=== PATIENT | female | born 1980 | race Caucasian/White ===

== ENCOUNTER 2016-03-18 17:16 | Emergency (ER) | payer OTHER ==
--- NOTE | 2016-03-18 18:17 | ERNOTE ---
ER Female HPI Date of Service: 03/18/16 Stated Complaint: 8 WEEKS . BLEEDING/CLOTS Presenting Symptoms: other Time Seen by Provider: 03/18/16 18:03 Source: patient, RN notes reviewed Exam Limitations: no limitations Immunizations: IMMUNIZATION HX Immunizations Up to Date No History of Influenza Vaccine No Hx Pneumococcal Vaccination No Allergies/Adverse Reactions: Allergies No Known Allergies Allergy (Verified 05/12/15 17:49) Home Medications: HOME MEDICATIONS Labetalol HCl [Trandate] 100 mg PO BID 03/18/16 [Last Taken Unknown] NK [No Home Medication] 03/18/16 [Last Taken Unknown] Pain Score #1 Pain Score: 0 - History of Present Illness Narrative: 35 y/o female ambulatory to ED for vaginal bleeding. She is 8 weeks . She a brief episode of heavy bleeding and passed several clots earlier this afternoon. She reports the bleeding has since stopped. She contacted her OB's office and was directed to come here for evaluation. Her ultrasound and appointment were moved up to this Monday. She is a . She reports being Rh positive. She denies any abdominal or pelvic pain. Activities at Onset: Present: none Prior Abdominal Problems: Present: similar symptoms - during 1st Associated Symptoms: Absent: fever/chills, nausea, vomiting, abdominal pain, dysuria, urinary frequency, low back pain Review of Systems - Review of Systems Constitutional: Present: See HPI EYE: Present: no symptoms reported ENT: Present: no symptoms reported Respiratory: Present: no symptoms reported Cardiology: Present: no symptoms reported Gastrointestinal/Abdominal: Present: See HPI Genitourinary: Present: See HPI Musculoskeletal: Present: See HPI Skin: Present: no symptoms reported Neurological: Absent: headache, dizziness/light-headedness, weakness Endocrine: Present: no symptoms reported Hematologic/Lymphatic: Present: no symptoms reported Psych: Present: no symptoms reported - Patient's Past Medical History Patient History - Medical: No pertinent hx Patient History - Cardiac/Respiratory: Hypertension Patient History - Cancer: No Hx of Cancer Patient History - Surgical Procedures: No surgical history Patient History - Other: None LMP (females 10-50): 01/29/16 LMP (Calendar): 01/29/16 - Social History Living Situations: alone Abuse History: No History of abuse Psych History: No pertinent hx Smoking Status: Smoker, status unknown Have you smoked in the past 12 months: No Do you dip or chew tobacco: No Patient requests Smoking Cessation Consult: No Initiate information on Smoking Cessation: No Alcohol Use: none Drug Use: none - Immunizations Immunizations Up to Date: No Hx Pneumococcal Vaccination: No History of Influenza Vaccine: No Physical Exam - Physical Exam General Appearance: Present: wd/wn, alert, no apparent distress Respiratory: Present: no respiratory distress, normal breath sounds, no accessory muscle use, lungs clear Cardiovascular/Chest: Present: regular rate, rhythm, no murmur, normal peripheral pulses Gastrointestinal/Abdominal: Present: normal bowel sounds, nontender, nondistended, soft Neurological Exam: Present: alert, oriented, normal mood/affect, no motor/ sensory deficits Skin Exam: Present: normal color, warm/dry ED Progress - Vital Signs Patient's Vital Signs:: I have reviewed the patient's vital signs. Vital Signs: Vital Signs 03/18/16 03/18/16 17:16 17:49 Temperature 36.7 C 36.7 C Pulse Rate 75 75 Respiratory 16 16 Rate Blood Pressure 167/86 167/86 O2 Sat by Pulse 98 98 Oximetry - Progress/Reassessment Chief Complaint: OB Screening Progress:: Unchanged Plan - Plan Plan: No testing done at this time as patient's bleeding has subsided and she is not having pain. Discussed indications for needing to return to the ED, otherwise is to f/u on Monday as planned. Patient in agreement with plan. Departure Clinical Impression: First trimester bleeding - Departure Disposition: Home Follow Up Needed Condition: Stable Instructions: Vaginal Bleeding During , First Trimester Additional Instructions: Nothing in the vagina until ok'd by your OB Return for worsening symptoms - saturating a pad in an hour, passing large clots , pain See your doctor Monday as scheduled Referrals: Hammad Jernigan MD [Primary Care Provider] -
[2016-03-18 18:29] VITALS: BP 153/73
== END 2016-03-18 18:26 | disposition home or self-care (01) ==
LOC: ER 17:16
DX: O20.9 Hemorrhage in early pregnancy, unspecified (principal); Z3A.08 8 weeks gestation of pregnancy